=== PATIENT | female | born 1955 | race Caucasian/White ===

== ENCOUNTER 2017-04-02 08:00 | Outpatient (CLI) | payer MEDICAID ==
[2017-04-02 17:57] LABS: BASOPHILS % (AUTO) 0.7 %; EOSINOPHILS # (AUTO) 0.1 10^3/uL (0.0-0.7); EOSINOPHILS % (AUTO) 2.8 %; HCT - HEMATOCRIT 44.3 % (37.0-47.0); HGB - HEMOGLOBIN 14.8 g/dL (12.0-16.0); LYMPHOCYTES % (AUTO) 44.5 %; MEAN CORPUSCULAR HEMOGLOBIN 32.3 pg (27.0-31.0); MEAN CORPUSCULAR HGB CONC 33.5 g/dL (32.0-36.0); MEAN CORPUSCULAR VOLUME 96.3 fL (81.0-99.0); MEAN PLATELET VOLUME 9.9 fL (7.9-10.8); MONOCYTES # (AUTO) 0.4 10^3/uL (0.0-1.0); MONOCYTES % (AUTO) 8.5 %; NEUTROPHILS # (AUTO) 1.9 10^3/uL (1.5-6.6); NEUTROPHILS % (AUTO) 43.5 %; RED BLOOD COUNT 4.59 10^6/uL (4.20-5.40); RED CELL DISTRIBUTION WIDTH 12.6 % (12.0-15.0); UNCORRECTED WHITE BLOOD COUNT 4.4 x10^3/uL; WHITE BLOOD COUNT 4.4 x10^3/uL (4.8-10.8)
[2017-04-03 09:32] LABS: PROGESTERONE 1.7 ng/mL (())
[2017-04-04 19:01] LABS: ANA SCREEN POSITIVE (NEGATIVE)
[2017-04-04 19:37] LABS: ANA TITER 1:40 titer (())
[2017-04-05 15:46] LABS: TEST RESULT REPORT (())
== END 2017-04-02 08:01 | disposition home or self-care (01) ==
LOC: LAB.F 08:00
PROVIDERS: ATTEND Nurse Practitioner Family
DX: R63.5 Abnormal weight gain (principal); M25.50 Pain in unspecified joint
CPT/HCPCS: 36415; 81599; 82670; 84144; 84402; 84403; 85025; 85651; 86038; 86140; 86430

== ENCOUNTER 2017-04-11 16:10 | Outpatient (CLI) | payer MEDICAID ==
[2017-04-11 20:08] LABS: ALBUMIN/GLOBULIN RATIO 1.2 (1.0-2.2); BILIRUBIN,TOTAL 0.5 mg/dL (0.2-1.0); CALCIUM 9.1 mg/dL (8.5-10.3); CREATININE 0.8 mg/dL (0.4-1.0); POTASSIUM 3.7 mmol/L (3.5-5.0); TOTAL PROTEIN 7.1 g/dL (6.7-8.2)
[2017-04-11 20:24] LABS: THYROID STIMULATING HORMONE 0.53 uIU/mL (0.34-5.60)
== END 2017-04-11 16:11 | disposition home or self-care (01) ==
LOC: LAB.F 16:10
PROVIDERS: ATTEND Nurse Practitioner Family
DX: E03.9 Hypothyroidism, unspecified (principal)
CPT/HCPCS: 36415; 80053; 84439; 84443; 84481

== ENCOUNTER 2017-05-29 11:49 | Outpatient (CLI) | payer MEDICAID ==
--- NOTE | 2017-05-30 09:44 | XRAY Report ---
THREE-VIEW LEFT FOURTH FINGER: 05/29/2017 CLINICAL INDICATION: Finger pain. FINDINGS: AP, lateral, oblique views of the left fourth finger demonstrate no evidence of fracture o r dislocation. The joint spaces are preserved. No radiopaque foreign body is seen in the soft tissu es. IMPRESSION: NORMAL FOURTH FINGER. JOB #: [id number] EXT JOB #:[id number]
== END 2017-05-29 11:50 | disposition home or self-care (01) ==
LOC: DI.S 11:49
PROVIDERS: ATTEND Nurse Practitioner Family
DX: M79.645 Pain in left finger(s) (principal)
CPT/HCPCS: 73140

== ENCOUNTER 2017-07-18 13:17 | Outpatient (CLI) | payer MEDICAID ==
[2017-07-18 17:54] LABS: BASOPHILS % (AUTO) 0.5 %; EOSINOPHILS # (AUTO) 0.1 10^3/uL (0.0-0.7); HCT - HEMATOCRIT 43.5 % (37.0-47.0); HGB - HEMOGLOBIN 14.6 g/dL (12.0-16.0); LYMPHOCYTES % (AUTO) 28.6 %; MEAN CORPUSCULAR HEMOGLOBIN 32.5 pg (27.0-31.0); MEAN CORPUSCULAR HGB CONC 33.5 g/dL (32.0-36.0); MEAN PLATELET VOLUME 9.8 fL (7.9-10.8); MONOCYTES # (AUTO) 0.5 10^3/uL (0.0-1.0); MONOCYTES % (AUTO) 6.6 %; NEUTROPHILS # (AUTO) 4.3 10^3/uL (1.5-6.6); NEUTROPHILS % (AUTO) 62.3 %; NUCLEATED RED BLOOD CELLS AUTO 0.1 /100WBC; RED BLOOD COUNT 4.48 10^6/uL (4.20-5.40); RED CELL DISTRIBUTION WIDTH 12.8 % (12.0-15.0); UNCORRECTED WHITE BLOOD COUNT 6.9 x10^3/uL; WHITE BLOOD COUNT 6.9 x10^3/uL (4.8-10.8)
[2017-07-18 18:18] LABS: URIC ACID 3.2 mg/dL (2.6-7.2)
== END 2017-07-18 13:18 | disposition home or self-care (01) ==
LOC: LAB.F 13:17
PROVIDERS: ATTEND Nurse Practitioner Family
DX: M79.645 Pain in left finger(s) (principal)
CPT/HCPCS: 36415; 84550; 85025; 85651; 86140

== ENCOUNTER 2017-12-15 12:45 | Outpatient (CLI) | payer OTHER ==
--- NOTE | 2017-12-15 14:24 | Ultrasound Report ---
ULTRASOUND LEFT POPLITEAL FOSSA: 12/15/2017 CLINICAL INDICATION: Pain. TECHNIQUE: Real-time scanning was performed with customer development representative static images obtained. FINDINGS: Ultrasound of the left popliteal fossa was performed. There is a 4.6 x 1.5 x 0.9 cm Boyd's cyst present. No solid mass is identified. IMPRESSION: BOYD'S CYST IN THE LEFT POPLITEAL FOSSA. TD: 12/15/2017 14:23
== END 2017-12-15 12:46 | disposition home or self-care (01) ==
LOC: DI 12:45
PROVIDERS: ATTEND Naturopath
DX: M71.22 Synovial cyst of popliteal space [Baker], left knee (principal)
CPT/HCPCS: 76882

== ENCOUNTER 2018-08-17 14:40 | Emergency (ER) | payer MEDICAID, OTHER ==
[2018-08-17 15:16] LABS: BASOPHILS % (AUTO) 0.6 %; EOSINOPHILS # (AUTO) 0.1 10^3/uL (0.0-0.7); EOSINOPHILS % (AUTO) 1.6 %; HGB - HEMOGLOBIN 14.7 g/dL (12.0-16.0); LYMPHOCYTES # (AUTO) 2.1 10^3/uL (1.5-3.5); LYMPHOCYTES % (AUTO) 35.2 %; MEAN CORPUSCULAR VOLUME 94.3 fL (81.0-99.0); MEAN PLATELET VOLUME 8.2 fL (7.9-10.8); MONOCYTES # (AUTO) 0.3 10^3/uL (0.0-1.0); MONOCYTES % (AUTO) 5.6 %; NEUTROPHILS # (AUTO) 3.4 10^3/uL (1.5-6.6); PLT - PLATELET COUNT 226 10^3/uL (130-450); RED BLOOD COUNT 4.45 10^6/uL (4.20-5.40); RED CELL DISTRIBUTION WIDTH 12.7 % (12.0-15.0); WHITE BLOOD COUNT 5.9 x10^3/uL (4.8-10.8)
[2018-08-17 15:27] LABS: ALBUMIN 3.9 g/dL (3.2-5.5); ALBUMIN/GLOBULIN RATIO 1.3 (1.0-2.2); BILIRUBIN,TOTAL 0.6 mg/dL (0.2-1.0); CALCIUM 8.9 mg/dL (8.5-10.3); CREATININE 0.8 mg/dL (0.4-1.0); TOTAL PROTEIN 6.9 g/dL (6.7-8.2)
--- NOTE | 2018-08-17 17:19 | ED Physician Documentation ---
PD HPI FOCAL NEURO - Stated complaint Stated Complaint: DIZZY/STRINGER - Chief complaint Chief Complaint: Neuro - History obtained from History obtained from: Patient - History of Present Illness Timing - onset: Other (63-year-old woman who is relatively healthy at baseline. For the last little bit she is been feeling off, hard to piece together exactly what she was feeling just kind of malaise. But starting yesterday she started to develop pain over the left baptism. She also has some sinus congestion with it but no drainage. She denies fevers. She feels off balance with it. She is not dizzy and at rest, only when upright and walking.) Review of Systems Constitutional: denies: Fever, Chills Nose: reports: Congestion, Sinus pressure / pain. denies: Rhinorrhea / runny nose Throat: denies: Sore throat Cardiac: denies: Chest pain / pressure, Palpitations Respiratory: denies: Dyspnea, Cough PD PAST MEDICAL HISTORY - Past Medical History Past Medical History: No Cardiovascular: None Respiratory: None Neuro: None Endocrine/Autoimmune: HyPOthyroidism GI: None BENCH ASSEMBLY INSPECTOR: Ectopic , Fibroids : Chronic bladder infection HEENT: None Psych: None Musculoskeletal: None Derm: None - Past Surgical History Past Surgical History: Yes /BENCH ASSEMBLY INSPECTOR: Oophrectomy - Present Medications Home Medications: Ambulatory Orders Medication Instructions Recorded Confirmed Thyroid [[place] Thyroid] 1 tab-cap PO DAILY 12/12/14 03/31/16 Amox/Clav 875/125 [Augmentin] 1 each PO Q12H 14 Days tablet 12/01/16 Saccharomyces Boulardii [Florastor] 250 mg PO BID #28 capsule 12/01/16 Meclizine HCl 25 mg PO Q6H PRN #20 tab.chew 08/17/18 Ondansetron Odt [Zofran] 4 mg TL Q6H PRN #10 tablet 08/17/18 - Allergies Allergies/Adverse Reactions: Allergies Allergy/AdvReac Type Severity Reaction Status Date / Time azithromycin [From Zithromax] Allergy Unknown Verified 03/31/16 09:20 Sulfa (Sulfonamide Allergy Hives Verified 03/31/16 09:20 Antibiotics) - Social History Does the pt smoke?: No Smoking Status: Never smoker Does the pt drink ETOH?: No Does the pt have substance abuse?: No - Immunizations Immunizations are current?: Yes - POLST Patient has POLST: No PD ED PE NORMAL - Vitals Vital signs reviewed: Yes - General General: Alert and oriented X 3, No acute distress - HEENT HEENT: PERRL, EOMI, Pharynx benign - Neck Neck: Supple, no meningeal sign, No bony TTP - Cardiac Cardiac: RRR, No murmur - Respiratory Respiratory: No respiratory distress, Clear bilaterally - Neuro Neuro: Alert and oriented X 3, Normal speech - Psych Psych: Normal mood, Normal affect NIHSS - Time Time: 17:15 - Level of Consciousness Level of consciousness: (0) Alert, Keenly responsive LOC Questions: (0) Answers both Q's correct LOC Commands: (0) Performs both correctly - Gaze Best Gaze: (0) Normal - Visual Visual: (0) No loss - Facial Palsy Facial Palsy: (0) Normal, symmetrical movement - Motor Arms (both separate) Motor Arm (right): (0) No drift Motor Arm (left): (0) No drift - Motor Legs (both separate) Motor Leg (right): (0) No drift Motor Leg (left): (0) No drift - Limb Ataxia Limb Ataxia: (0) Absent - Sensory Sensory: (0) Normal - Best Language Best Language: (0) No aphasia - Dysarthria Dysarthria: (0) Normal - Extinction and Inattention (formally neg Extinction and inattention: (0) No abnormality - Total Score/Results Total Score/Result: 0 Results - Vitals Vitals: Vital Signs - 24 hr 08/17/18 14:44 Temperature 36.8 C Heart Rate 98 Respiratory 18 Rate Blood Pressure 127/82 H O2 Saturation 99 Oxygen O2 Source Room air - EKG (time done) 1453 Rate: Rate (enter#) (96) Rhythm: NSR [place]: Normal Intervals: Normal HI QRS: Normal Ischemia: Normal ST segments Computer interpretation: Agree with computer - Labs Labs: Laboratory Tests 08/17/18 08/17/18 15:08 15:08 WBC 5.9 RBC 4.45 Hgb 14.7 Hct 41.9 MCV 94.3 MCH 33.0 H MCHC 35.0 RDW 12.7 Plt Count 226 MPV 8.2 Neut # (Auto) 3.4 Lymph # (Auto) 2.1 [place] # (Auto) 0.3 Eos # (Auto) 0.1 Baso # (Auto) 0.0 Absolute Nucleated RBC 0.00 Nucleated RBC % 0.0 Sodium 137 Potassium 3.6 Chloride 104 Carbon Dioxide 28 Anion Gap 5.0 L BUN 11 Creatinine 0.8 Estimated GFR (MDRD) 72 L Glucose 118 H Calcium 8.9 Total Bilirubin 0.6 AST 20 ALT 20 Alkaline Phosphatase 115 Total Protein 6.9 Albumin 3.9 Globulin 3.0 Albumin/Globulin Ratio 1.3 Lipase 32 - Rads (name of study) CT Head Radiology: EMP read contemporaneously (NAD, Nonaggressive appearance of thickened right temporal bone lesion) PD MEDICAL DECISION MAKING - ED course ED course: 63-year-old woman with dizziness, disequilibrium without neurologic findings and left-sided headache. Cranial imaging demonstrates a nonaggressive appearing bone lesion on the right. Discussed need for follow-up for MRI. She appears nontoxic with no evidence clinically of subarachnoid hemorrhage or meningitis. Departure - Departure Disposition: 01 Home, Self Care Clinical Impression: Dizziness Headache Qualifiers: Headache type: unspecified Headache chronicity pattern: acute headache Intractability: not intractable Qualified Code(s): R51 - Headache Condition: Good Record reviewed to determine appropriate education?: Yes Instructions: ED Dizziness UKO Prescriptions: Meclizine HCl 25 mg PO Q6H PRN #20 tab.chew PRN Reason: Dizziness Ondansetron Odt [Zofran] 4 mg TL Q6H PRN #10 tablet PRN Reason: Nausea / Vomiting Comments: As discussed your brain and sinuses look okay but you do have Thickening of the right temporal bone that needs further workup. Talk with your primary care physician about scheduling an MRI for this. Return for new or worsening symptoms.
--- NOTE | 2018-08-17 18:31 | CT Report ---
Reason: headache Procedure Date: 08/17/2018 Accession Number: [id number] / [id number] Procedure: CT - Head W/O CPT Code: FULL RESULT: EXAM: CT HEAD EXAM DATE: 08/17/2018 06:08 PM. CLINICAL HISTORY: Headache. Left-sided head pain. COMPARISON: None. TECHNIQUE: Multiaxial CT images were obtained from the foramen magnum to the vertex. Reformats: Sagittal and coronal. IV contrast: None. In accordance with CT protocol optimization, one or more of the following dose reduction techniques were utilized for this exam: automated exposure control, adjustment of mA and/or KV based on patient size, or use of iterative reconstructive technique. FINDINGS: Parenchyma: No intraparenchymal hemorrhage. No evidence of mass, midline shift, or CT findings of infarction. Ellis-white differentiation is distinct. Extraaxial Spaces: Normal for age. No subdural or epidural collections identified. Ventricles: Normal in size and position. Sinuses and Orbits: Imaged paranasal sinuses, orbits, and mastoids show no significant abnormality. Bones: No evidence of fracture or calvarial defect. Thick dense right posterior lateral and inferior temporal bone lesion protruding inferiorly, not completely imaged, uncertain etiology, has a nonaggressive appearance. Correlate clinically. IMPRESSION: 1. No acute or focal intracranial abnormalities seen. 2. Thick dense right posterior lateral and inferior temporal bone lesion protruding inferiorly, not completely imaged, uncertain etiology, has a nonaggressive appearance. Correlate clinically. RADIA
[2018-08-17] MEDS ORDERED: MECLIZINE 12.5 MG TABLET PO STA (18:40)
[2018-08-17] MEDS ORDERED: ONDANSETRON ODT 4 MG TABLET TL STA (18:40)
[2018-08-17 18:58] VITALS: BP 138/76
== END 2018-08-17 18:59 | disposition home or self-care (01) ==
LOC: ED 14:40
DX: R42 Dizziness and giddiness (principal); R51 Headache; R93.0 Abnormal findings on diagnostic imaging of skull and head, not elsewhere classified
CPT/HCPCS: 36415; 70450; 80053; 83690; 85025; 93005; 99283; 99284; A9270; Q0162

== ENCOUNTER 2020-05-23 21:09 | Outpatient (CLI) | payer SELFPAY | END 2020-05-23 21:10 | disposition EMS.NT | LOC: EMS 21:09 | PROVIDERS: ATTEND Surgery | DX: M54.9 Dorsalgia, unspecified (principal) ==

== ENCOUNTER 2020-11-23 17:34 | Outpatient (CLI) | payer MEDICARE | END 2020-11-23 17:35 | disposition home or self-care (01) | LOC: LAB 17:34 | PROVIDERS: ATTEND Ophthalmology | DX: H46.9 Unspecified optic neuritis (principal) | CPT/HCPCS: 36415; 85651; 86140 ==

== ENCOUNTER 2020-12-30 08:00 | Outpatient (CLI) | payer MEDICARE ==
[2020-12-30 15:33] LABS: BASOPHILS % (AUTO) 0.5 %; EOSINOPHILS # (AUTO) 0.1 10^3/uL (0.0-0.7); EOSINOPHILS % (AUTO) 2.3 %; HCT - HEMATOCRIT 42.9 % (37.0-47.0); HGB - HEMOGLOBIN 14.1 g/dL (12.0-16.0); LYMPHOCYTES # (AUTO) 1.9 10^3/uL (1.5-3.5); LYMPHOCYTES % (AUTO) 32.1 %; MEAN CORPUSCULAR HGB CONC 32.9 g/dL (32.0-36.0); MEAN CORPUSCULAR VOLUME 97.3 fL (81.0-99.0); MEAN PLATELET VOLUME 11.2 fL (7.9-10.8); MONOCYTES # (AUTO) 0.4 10^3/uL (0.0-1.0); MONOCYTES % (AUTO) 6.6 %; NEUTROPHILS # (AUTO) 3.4 10^3/uL (1.5-6.6); NEUTROPHILS % (AUTO) 58.5 %; PLT - PLATELET COUNT 187 10^3/uL (130-450); RED BLOOD COUNT 4.41 10^6/uL (4.20-5.40); RED CELL DISTRIBUTION WIDTH 12.2 % (12.0-15.0); WHITE BLOOD COUNT 5.8 x10^3/uL (4.8-10.8)
[2020-12-30 15:46] LABS: ALBUMIN 4.1 g/dL (3.2-5.5); ALBUMIN/GLOBULIN RATIO 1.4 (1.0-2.2); BILIRUBIN,TOTAL 0.5 mg/dL (0.2-1.0); CALCIUM 9.1 mg/dL (8.5-10.3); CREATININE 0.7 mg/dL (0.4-1.0); POTASSIUM 4.1 mmol/L (3.5-5.0)
== END 2020-12-30 23:59 | disposition home or self-care (01) ==
LOC: LAB.S 08:00
PROVIDERS: ATTEND Physician Assistant Medical
DX: J45.909 Unspecified asthma, uncomplicated (principal); H46.9 Unspecified optic neuritis; R79.89 Other specified abnormal findings of blood chemistry
CPT/HCPCS: 36415; 80053; 85025

== ENCOUNTER 2021-06-01 16:37 | Outpatient (CLI) | payer MEDICARE ==
--- NOTE | 2021-06-01 17:16 | XRAY Report ---
PROCEDURE: Hand 2 View LT INDICATIONS: PAIN IN FINGER OF LEFT HAND TECHNIQUE: 2 views of the hand(s) acquired. COMPARISON: None. FINDINGS: First CMC and triscaphe joint degeneration. Diffuse interphalangeal joint degeneration. No acute frac ture There is prominent osteophyte formation and advanced degeneration at the PIP joint of the little fing er. Soft tissues grossly unremarkable. IMPRESSION: Degenerative changes as above. Prominent degenerative spurring seen at the PIP joint of the little fi nger. Reviewed by: Mainor Abernathy MD on 06/01/2021 5:14 PM PDT Approved by: Mainor Abernathy MD on 06/01/2021 5:14 PM PDT Station ID: [id number]
== END 2021-06-01 16:38 | disposition home or self-care (01) ==
LOC: DI 16:37
PROVIDERS: ATTEND Physician Assistant
DX: M18.12 Unilateral primary osteoarthritis of first carpometacarpal joint, left hand (principal); M19.042 Primary osteoarthritis, left hand

== ENCOUNTER 2021-11-22 08:00 | Outpatient (CLI) | payer MEDICARE | END 2021-11-22 23:59 | disposition home or self-care (01) | LOC: LAB 08:00 | PROVIDERS: ATTEND Emergency Medicine | DX: L03.011 Cellulitis of right finger (principal) | CPT/HCPCS: 87070; 87205 ==

== ENCOUNTER 2022-04-08 10:33 | Outpatient (CLI) | payer MEDICARE ==
--- NOTE | 2022-04-08 14:50 | XRAY Report ---
PROCEDURE: Foot 3 View BILAT INDICATIONS: FT PAIN TECHNIQUE: 3 views of each foot were obtained . COMPARISON: None FINDINGS: Bones: On the left, there is first metacarpophalangeal joint space narrowing and small marginal osteo phyte. No lytic lesion. The right, osseous structures unremarkable without lytic or blastic lesion. Soft tissues: No tibiotalar joint effusion. Achilles tendon appears normal. IMPRESSION: 1. Left first MCP joint osteoarthritis Reviewed by: Joel Baird MD on 04/08/2022 1:49 PM [email or web address] Approved by: Joel Baird MD on 04/08/2022 1:49 PM [id number] Station ID: [id number]
== END 2022-04-08 10:34 | disposition home or self-care (01) ==
LOC: DI 10:33
PROVIDERS: ATTEND Podiatrist
DX: M19.072 Primary osteoarthritis, left ankle and foot (principal); M79.671 Pain in right foot

== ENCOUNTER 2022-12-24 06:46 | Outpatient (CLI) | payer MEDICARE ==
--- NOTE | 2022-12-24 09:26 | Ultrasound Report ---
PROCEDURE: Abdomen Complete INDICATIONS: ABD DISTENSION, ABD PAIN TECHNIQUE: Real-time scanning was performed of the abdominal and retroperitoneal organs, with image documentatio n. COMPARISON: None FINDINGS: Liver: 16 cm. Mildly heterogeneous and echogenic. Gallbladder: Cholelithiasis. Biliary tree: CBD measures 6 mm, at the upper limit of normal. Pancreas: Head is unremarkable, tail is not well seen. Spleen: No splenomegaly Kidneys: Right kidney measures 10 cm. Left kidney measures 11 cm. Normal cortical thickness. No hydro nephrosis Aorta: Nonaneurysmal [place]li[place]: Not well seen IVC: Patent Free fluid/miscellaneous: No pathologic free fluid. IMPRESSION: Cholelithiasis. No sonographic evidence of inflammation. Mildly heterogeneous echogenic liver could be seen with a mild degree of fibrofatty infiltration, con color card maker correlation with LFTs. Reviewed by: Pablo Power MD on 12/24/2022 9:25 AM PDT Approved by: Pablo Power MD on 12/24/2022 9:25 AM PDT Station ID: [id number]
== END 2022-12-24 06:47 | disposition home or self-care (01) ==
LOC: DI 06:46
PROVIDERS: ATTEND Naturopath
DX: R14.3 Flatulence (principal); R14.0 Abdominal distension (gaseous); R10.84 Generalized abdominal pain; K80.20 Calculus of gallbladder without cholecystitis without obstruction

== ENCOUNTER 2024-05-10 08:00 | Outpatient (CLI) | payer MEDICARE ==
[2024-05-10 21:01] LABS: BILIRUBIN,URINE NEGATIVE (NEGATIVE); GLUCOSE, URINE (UA) NEGATIVE (NEGATIVE); KETONES,URINE (UA) NEGATIVE (NEGATIVE); LEUKOCYTE ESTERASE, URINE MODERATE (NEGATIVE); NITRITE,URINE NEGATIVE (NEGATIVE); OCCULT BLOOD,URINE NEGATIVE (NEGATIVE); PROTEIN,URINE NEGATIVE (NEGATIVE); UROBILINOGEN,URINE 0.2 (NORMAL) E.U./dL (NORMAL)
[2024-05-10 21:23] LABS: BACTERIA,URINE Many /HPF (None Seen); CLARITY,URINE CLEAR (CLEAR); RBC,URINE None Seen /HPF (0-5); SQUAMOUS EPITHELIAL CELL,UR RARE Squamous (<= Few); WBC CLUMPS,URINE PRESENT; WBC,URINE >25 /HPF (0-5)
== END 2024-05-10 23:59 | disposition home or self-care (01) ==
LOC: LAB.S 08:00
PROVIDERS: ATTEND Emergency Medicine
DX: R30.0 Dysuria (principal)
CPT/HCPCS: 81001; 87086; 87181